=== PATIENT | female | born 1950 | race Caucasian/White ===

== ENCOUNTER 2022-04-20 11:26 | Inpatient (IN) | payer OTHER ==
[2022-04-20 11:41] VITALS: BMI 23.6
[2022-04-20 13:21] LABS: BASO % 1.1 % (0-2.0); EOS % 0.9 % (0-4.5); HEMATOCRIT 50.5 % (32.4-45.2); HEMOGLOBIN 16.8 GM/dL (10.7-15.3); LYMPH % 26.3 % (8-40); MCHC 33.3 g/dl (32.0-36.0); MEAN CELL VOLUME 90.2 fl (80-96); MEAN PLT VOLUME 9.2 fl (7.5-11.1); MONO % 5.3 % (3.8-10.2); NEUT % 66.4 % (42.8-82.8); PLATELET COUNT 270 10^3/uL (134-434); RDW 14.7 % (11.6-15.6); WHITE BLOOD COUNT 7.5 K/mm3 (4.0-10.0)
[2022-04-20] MEDS ORDERED: LACTATED RINGERS SOLUTION 1000 ML INFUS.BAG IV ONE (13:43)
[2022-04-20 13:51] LABS: CHLORIDE 108 mmol/L (98-107); SODIUM 140 mmol/L (136-145)
[2022-04-20 13:51] LABS: EPI CELLS 5 /uL (0-25.1); HYALINE CASTS 0 /uL (0-3.1); PH,URINE 6.5 (5.0-8.0); URINE APPEARANCE CLEAR; URINE BACTERIA 15 /uL (0-1359); URINE BILIRUBIN NEGATIVE (NEGATIVE); URINE COLOR YELLOW; URINE GLUCOSE (UA) NEGATIVE (NEGATIVE); URINE KETONE NEGATIVE (NEGATIVE); URINE LEUK ESTERASE TRACE (NEGATIVE); URINE NITRITE NEGATIVE (NEGATIVE); URINE PROTEIN NEGATIVE (NEGATIVE); URINE RBC 4 /uL (0-23.9); URINE UROBILINOGEN 0.2 mg/dL (0.2-1.0); URINE WBC 9 /uL (0-25.8)
[2022-04-20 13:53] LABS: CALCIUM 9.3 mg/dL (8.5-10.1)
[2022-04-20 13:54] LABS: ALBUMIN 3.5 g/dl (3.4-5.0); BLOOD UREA NITROGEN 23.4 mg/dL (7-18); CO2 26 mmol/L (21-32); GLUCOSE,RANDOM 85 mg/dL (74-106)
[2022-04-20 13:57] LABS: CREATININE 1.1 mg/dL (0.55-1.3); SGOT/AST 98 U/L (15-37)
[2022-04-20 13:58] LABS: BILIRUBIN,TOTAL 0.4 mg/dL (0.2-1)
[2022-04-20 13:59] LABS: TOT PROT 7.3 g/dl (6.4-8.2)
[2022-04-20 14:00] LABS: ALK PHOS 70 U/L (45-117)
[2022-04-20 14:02] LABS: ANION GAP 6 MMOL/L (8-16); N-TERMINAL BNP 5083.2 pg/ml (5-125); SGPT/ALT 37 U/L (13-61)
[2022-04-20 15:18] LABS: CALCIUM 8.8 mg/dL (8.5-10.1)
[2022-04-20 15:19] LABS: BLOOD UREA NITROGEN 21.8 mg/dL (7-18)
[2022-04-20 15:22] LABS: CREATININE 0.9 mg/dL (0.55-1.3)
[2022-04-20 15:23] LABS: TOT PROT 5.6 g/dl (6.4-8.2)
[2022-04-20 15:24] LABS: BILIRUBIN,TOTAL 0.4 mg/dL (0.2-1)
[2022-04-20] MEDS ORDERED: METOPROLOL TARTRATE 5 MG/5 ML VIAL IVPUSH ONE (19:30)
[2022-04-20] MEDS ORDERED: FUROSEMIDE 40 MG/4 ML INJECTABLE VIAL IVPUSH ONE (19:30)
[2022-04-20] MEDS ORDERED: METOPROLOL TARTRATE 5 MG/5 ML VIAL ONE (19:58)
[2022-04-20] MEDS ORDERED: FUROSEMIDE 40 MG/4 ML INJECTABLE VIAL ONE (19:58)
[2022-04-20] MEDS ORDERED: METOPROLOL TARTRATE 25 MG TABLET (FP) PO ONE (20:17)
[2022-04-20] MEDS ORDERED: APIXABAN 5 MG TABLET ONE (20:51)
[2022-04-20] MEDS ORDERED: METOPROLOL TARTRATE 25 MG TABLET (FP) ONE (20:51)
[2022-04-20] MEDS: APIXABAN 5 MG TABLET PO SCH (22:39)
[2022-04-21] MEDS ORDERED: METOPROLOL TARTRATE 25 MG TABLET (FP) PO ONE (00:26)
[2022-04-21] MEDS ORDERED: METOPROLOL TARTRATE 25 MG TABLET (FP) ONE ×3 (01:21→14:58)
[2022-04-21] MEDS: METOPROLOL TARTRATE 25 MG TABLET (FP) PO SCH ×3 (05:48→23:00)
[2022-04-21 07:13] LABS: BASO % 0.9 % (0-2.0); EOS % 1.3 % (0-4.5); HEMATOCRIT 49.8 % (32.4-45.2); HEMOGLOBIN 16.2 GM/dL (10.7-15.3); LYMPH % 30.5 % (8-40); MCH 29.4 pg (25.7-33.7); MCHC 32.5 g/dl (32.0-36.0); MEAN CELL VOLUME 90.5 fl (80-96); MEAN PLT VOLUME 9.2 fl (7.5-11.1); MONO % 6.8 % (3.8-10.2); NEUT % 60.5 % (42.8-82.8); PLATELET COUNT 262 10^3/uL (134-434); RDW 14.6 % (11.6-15.6); WHITE BLOOD COUNT 8.8 K/mm3 (4.0-10.0)
[2022-04-21 07:32] LABS: ALBUMIN 3.4 g/dl (3.4-5.0); BLOOD UREA NITROGEN 25.1 mg/dL (7-18); CALCIUM 9.3 mg/dL (8.5-10.1)
[2022-04-21 07:35] LABS: CREATININE 1.2 mg/dL (0.55-1.3)
[2022-04-21 07:37] LABS: BILIRUBIN,TOTAL 0.6 mg/dL (0.2-1); TOT PROT 6.3 g/dl (6.4-8.2)
[2022-04-21] MEDS ORDERED: APIXABAN 5 MG TABLET ONE (10:07)
[2022-04-21] MEDS: APIXABAN 5 MG TABLET PO SCH (11:49)
[2022-04-21] MEDS ORDERED: METOPROLOL TARTRATE 5 MG/5 ML VIAL ONE (12:53)
[2022-04-21] MEDS: METOPROLOL TARTRATE 5 MG/5 ML VIAL IVPUSH PRN (12:58)
[2022-04-21] MEDS ORDERED: HEPARIN NA (PORCINE) 5,000 UNITS/ML 1ML VIAL IVPUSH ONE (14:29)
[2022-04-21] MEDS ORDERED: HEPARIN NA (PORCINE) 5,000 UNITS/ML 1ML VIAL IVPUSH PRN (14:32)
[2022-04-21] MEDS ORDERED: HEPARIN NA (PORCINE) 5,000 UNITS/ML 1ML VIAL ONE (15:52)
[2022-04-21] MEDS: HEPARIN SOD,PORK IN 0.45% NACL 25,000 UNIT/500 ML INFUS.BAG IVPB SCH (16:12)
[2022-04-21 16:32] LABS: INR 1.59 (0.83-1.09); PROTHROMBIN TIME (PATIENT) 18.4 SEC (9.7-13.0)
[2022-04-21 16:35] LABS: ACTIVATED PTT 34.9 SECONDS (25.2-36.5)
[2022-04-22 07:32] LABS: HEMATOCRIT 48.6 % (32.4-45.2); MCH 29.7 pg (25.7-33.7); MCHC 32.8 g/dl (32.0-36.0); MEAN CELL VOLUME 90.7 fl (80-96); MEAN PLT VOLUME 9.3 fl (7.5-11.1); PLATELET COUNT 221 10^3/uL (134-434); RBC 5.36 M/mm3 (3.60-5.2); RDW 14.6 % (11.6-15.6); WHITE BLOOD COUNT 8.3 K/mm3 (4.0-10.0)
[2022-04-22 07:53] LABS: ALBUMIN 3.4 g/dl (3.4-5.0); CALCIUM 8.5 mg/dL (8.5-10.1)
[2022-04-22 07:54] LABS: BLOOD UREA NITROGEN 31.8 mg/dL (7-18)
[2022-04-22 07:56] LABS: CREATININE 1.1 mg/dL (0.55-1.3)
[2022-04-22 07:58] LABS: BILIRUBIN,TOTAL 0.6 mg/dL (0.2-1); TOT PROT 6.2 g/dl (6.4-8.2)
[2022-04-22] MEDS ORDERED: METOPROLOL TARTRATE 25 MG TABLET (FP) ONE ×4 (08:45→21:44)
[2022-04-22] MEDS: METOPROLOL TARTRATE 25 MG TABLET (FP) PO SCH ×3 (08:50→22:11)
[2022-04-22] MEDS ORDERED: METOPROLOL TARTRATE 5 MG/5 ML VIAL ONE (15:20)
[2022-04-22] MEDS: METOPROLOL TARTRATE 5 MG/5 ML VIAL IVPUSH PRN (15:25)
[2022-04-22] MEDS ORDERED: dilTIAZem HCL 50 MG/10 ML - 10 ML VIAL IVPUSH ONE (15:36)
[2022-04-22] MEDS: HEPARIN SOD,PORK IN 0.45% NACL 25,000 UNIT/500 ML INFUS.BAG IVPB SCH (15:37)
[2022-04-22] MEDS ORDERED: LORazepam 0.5 MG TABLET PO PRN (15:45)
[2022-04-22] MEDS ORDERED: LORazepam 0.5 MG TABLET ONE (15:55)
[2022-04-22] MEDS ORDERED: METOPROLOL TARTRATE 25 MG TABLET (FP) PO ONE (15:55)
[2022-04-23] MEDS: METOPROLOL TARTRATE 25 MG TABLET (FP) PO SCH ×3 (06:31→21:21)
[2022-04-23 08:18] LABS: HEMATOCRIT 45.3 % (32.4-45.2); HEMOGLOBIN 15.2 GM/dL (10.7-15.3); MCH 30.8 pg (25.7-33.7); MCHC 33.6 g/dl (32.0-36.0); MEAN CELL VOLUME 91.5 fl (80-96); MEAN PLT VOLUME 8.9 fl (7.5-11.1); PLATELET COUNT 147 10^3/uL (134-434); RBC 4.95 M/mm3 (3.60-5.2); RDW 14.4 % (11.6-15.6); WHITE BLOOD COUNT 6.6 K/mm3 (4.0-10.0)
[2022-04-23] MEDS: HEPARIN NA (PORCINE) 5,000 UNITS/ML 1ML VIAL IVPUSH PRN (08:58)
[2022-04-23] MEDS: HEPARIN SOD,PORK IN 0.45% NACL 25,000 UNIT/500 ML INFUS.BAG IVPB SCH ×2 (17:50→18:56)
[2022-04-24] MEDS: HEPARIN NA (PORCINE) 5,000 UNITS/ML 1ML VIAL IVPUSH PRN ×2 (04:42→23:49)
[2022-04-24] MEDS: METOPROLOL TARTRATE 25 MG TABLET (FP) PO SCH ×3 (06:37→21:55)
[2022-04-24 09:16] LABS: HEMATOCRIT 46.4 % (32.4-45.2); HEMOGLOBIN 15.1 GM/dL (10.7-15.3); MCH 29.9 pg (25.7-33.7); MCHC 32.6 g/dl (32.0-36.0); MEAN CELL VOLUME 91.8 fl (80-96); MEAN PLT VOLUME 9.2 fl (7.5-11.1); PLATELET COUNT 191 10^3/uL (134-434); RBC 5.06 M/mm3 (3.60-5.2); RDW 14.7 % (11.6-15.6)
[2022-04-24] MEDS: HEPARIN SOD,PORK IN 0.45% NACL 25,000 UNIT/500 ML INFUS.BAG IVPB SCH (13:30)
[2022-04-25] MEDS: METOPROLOL TARTRATE 25 MG TABLET (FP) PO SCH ×3 (06:03→21:24)
[2022-04-25 08:47] LABS: HEMATOCRIT 44.9 % (32.4-45.2); HEMOGLOBIN 15.1 GM/dL (10.7-15.3); MCH 30.5 pg (25.7-33.7); MCHC 33.6 g/dl (32.0-36.0); MEAN CELL VOLUME 90.8 fl (80-96); MEAN PLT VOLUME 8.9 fl (7.5-11.1); PLATELET COUNT 180 10^3/uL (134-434); RBC 4.95 M/mm3 (3.60-5.2); RDW 14.4 % (11.6-15.6)
[2022-04-25] MEDS: HEPARIN SOD,PORK IN 0.45% NACL 25,000 UNIT/500 ML INFUS.BAG IVPB SCH (18:54)
[2022-04-26] MEDS: HEPARIN NA (PORCINE) 5,000 UNITS/ML 1ML VIAL IVPUSH PRN (01:21)
[2022-04-26] MEDS: HEPARIN SOD,PORK IN 0.45% NACL 25,000 UNIT/500 ML INFUS.BAG IVPB SCH (02:02)
[2022-04-26] MEDS: METOPROLOL TARTRATE 25 MG TABLET (FP) PO SCH (05:46)
[2022-04-26 08:14] LABS: HEMATOCRIT 47.8 % (32.4-45.2); HEMOGLOBIN 15.6 GM/dL (10.7-15.3); MCH 29.8 pg (25.7-33.7); MCHC 32.7 g/dl (32.0-36.0); MEAN CELL VOLUME 91.2 fl (80-96); MEAN PLT VOLUME 9.7 fl (7.5-11.1); PLATELET COUNT 164 10^3/uL (134-434); RBC 5.24 M/mm3 (3.60-5.2); RDW 14.7 % (11.6-15.6); WHITE BLOOD COUNT 6.5 K/mm3 (4.0-10.0)
[2022-04-26] MEDS ORDERED: ATORVASTATIN CA 20 MG TABLET (FP) PO ONE (09:36)
[2022-04-26 09:41] VITALS: BP 121/89; PULSE 80; RESP 17; TEMP 98
[2022-04-27] MEDS ORDERED: ATORVASTATIN CA 20 MG TABLET (FP) PO SCH (10:00)
== END 2022-04-26 12:33 | disposition short-term general hospital (02) | DRG 207 ==
LOC: JER 11:26 → JERBED 19:22 → J4W 04-23 01:57
PROVIDERS: ADMIT Internal Medicine; ATTEND Family Medicine
DX: I27.20 Pulmonary hypertension, unspecified (principal); I11.0 Hypertensive heart disease with heart failure; I50.33 Acute on chronic diastolic (congestive) heart failure; R00.0 Tachycardia, unspecified; I48.92 Unspecified atrial flutter; R06.02 Shortness of breath
CPT/HCPCS: 36415; 71045-TC-FY; 71275-TC; 80048; 80053; 80061; 81003; 83880; 84439; 84443; 84484; 85025; 85027; 85610; 85730; 87086; 87186; 93005; 93010; 93306-TC; 99285-25; C9803-CS; J1644; Q9967; U0003; U0005

== ENCOUNTER 2023-06-02 16:59 | Inpatient (IN) | payer OTHER ==
[2023-06-02 20:26] LABS: BASO % 1.1 % (0-2.0); EOS % 1.5 % (0-4.5); HEMOGLOBIN 12.1 GM/dL (10.7-15.3); LYMPH % 25.1 % (8-40); MCHC 32.6 g/dl (32.0-36.0); MEAN CELL VOLUME 88.9 fl (80-96); MEAN PLT VOLUME 7.6 fl (7.5-11.1); MONO % 8.3 % (3.8-10.2); PLATELET COUNT 176 10^3/uL (134-434); RBC 4.16 M/mm3 (3.60-5.2); RDW 15.4 % (11.6-15.6); WHITE BLOOD COUNT 5.6 K/mm3 (4.0-10.0)
[2023-06-02 20:35] LABS: INR 1.38 (0.83-1.09); PROTHROMBIN TIME (PATIENT) 15.9 SEC (9.7-13.0)
[2023-06-02 20:38] LABS: ACTIVATED PTT 35.8 SECONDS (25.2-36.5)
[2023-06-02 20:48] LABS: POTASSIUM 4.6 mmol/L (3.5-5.1)
[2023-06-02 20:50] LABS: ALBUMIN 3.7 g/dl (3.4-5.0); BLOOD UREA NITROGEN 29.1 mg/dL (7-18); CALCIUM 8.6 mg/dL (8.5-10.1)
[2023-06-02 20:53] LABS: CREATININE 1.1 mg/dL (0.55-1.3)
[2023-06-02 20:55] LABS: BILIRUBIN,TOTAL 0.3 mg/dL (0.2-1); TOT PROT 6.4 g/dl (6.4-8.2)
[2023-06-03] MEDS: HYDROCORTISONE ACETATE 25 MG/SUPP.RECT RC SCH ×2 (01:09→15:13)
[2023-06-03 04:51] VITALS: BMI 24.7
[2023-06-03 07:19] LABS: HEMATOCRIT 34.6 % (32.4-45.2); MCHC 31.9 g/dl (32.0-36.0); MEAN CELL VOLUME 90.9 fl (80-96); PLATELET COUNT 166 10^3/uL (134-434); RDW 15.5 % (11.6-15.6); WHITE BLOOD COUNT 4.5 K/mm3 (4.0-10.0)
[2023-06-03 07:46] LABS: POTASSIUM 4.5 mmol/L (3.5-5.1)
[2023-06-03 07:52] LABS: ALBUMIN 3.1 g/dl (3.4-5.0)
[2023-06-03 07:53] LABS: BLOOD UREA NITROGEN 30.8 mg/dL (7-18); MAGNESIUM 2.2 mg/dL (1.8-2.4)
[2023-06-03 07:54] LABS: PHOSPHOROUS 3.2 mg/dL (2.5-4.9)
[2023-06-03 07:55] LABS: BILIRUBIN,TOTAL 0.3 mg/dL (0.2-1); TOT PROT 5.6 g/dl (6.4-8.2)
[2023-06-03] MEDS ORDERED: PANTOPRAZOLE SODIUM 40 MG VIAL IVPUSH SCH (12:30)
[2023-06-03] MEDS: PATIENT'S OWN MEDICATION (NON-FORMULARY) (Tadalafil [Tadalafil] 20 MG Tablet) PO SCH (21:51)
[2023-06-04 06:38] LABS: BASO % 0.7 % (0-2.0); EOS % 2.9 % (0-4.5); HEMATOCRIT 35.2 % (32.4-45.2); HEMOGLOBIN 11.3 GM/dL (10.7-15.3); LYMPH % 21.7 % (8-40); MCH 28.8 pg (25.7-33.7); MCHC 31.9 g/dl (32.0-36.0); MEAN CELL VOLUME 90.1 fl (80-96); MONO % 8.6 % (3.8-10.2); NEUT % 66.1 % (42.8-82.8); PLATELET COUNT 172 10^3/uL (134-434); RBC 3.91 M/mm3 (3.60-5.2); RDW 15.4 % (11.6-15.6)
[2023-06-04 06:59] LABS: POTASSIUM 4.3 mmol/L (3.5-5.1)
[2023-06-04 07:06] LABS: CALCIUM 8.1 mg/dL (8.5-10.1)
[2023-06-04 07:07] LABS: MAGNESIUM 2.1 mg/dL (1.8-2.4)
[2023-06-04 07:09] LABS: CREATININE 0.8 mg/dL (0.55-1.3)
[2023-06-04 07:10] LABS: PHOSPHOROUS 3.6 mg/dL (2.5-4.9)
[2023-06-04 07:11] LABS: BILIRUBIN,TOTAL 0.4 mg/dL (0.2-1); TOT PROT 5.5 g/dl (6.4-8.2)
[2023-06-04] MEDS: PATIENT'S OWN MEDICATION (NON-FORMULARY) (Tadalafil [Tadalafil] 20 MG Tablet) PO SCH (09:45)
[2023-06-04] MEDS ORDERED: PANTOPRAZOLE 40 MG TABLET PO SCH (10:00)
[2023-06-04] MEDS ORDERED: POLYETHYLENE GLYCOL (HEALTHYLAX) 3350 17 GM PACKET PO SCH (10:00)
[2023-06-04] MEDS ORDERED: MACITENTAN 10 MG PO SCH (10:00)
[2023-06-04 10:55] VITALS: TEMP 98
[2023-06-04] MEDS ORDERED: FUROSEMIDE 40 MG TABLET (FP) PO ONE (15:00)
[2023-06-04 16:35] VITALS: BP 111/53; PULSE 80; RESP 23
[2023-06-04] MEDS ORDERED: APIXABAN 5 MG TABLET PO SCH (22:00)
== END 2023-06-04 17:47 | disposition home or self-care (01) | DRG 661 ==
LOC: JER 16:59 → JERBED 23:59 → OBSVTOIN 23:59 → J2W 06-03 04:33
PROVIDERS: ADMIT Internal Medicine; ATTEND Internal Medicine
DX: D68.32 Hemorrhagic disorder due to extrinsic circulating anticoagulants (principal); I11.0 Hypertensive heart disease with heart failure; I27.21 Secondary pulmonary arterial hypertension; I50.32 Chronic diastolic (congestive) heart failure; Q21.10 Atrial septal defect, unspecified; K62.5 Hemorrhage of anus and rectum; K64.9 Unspecified hemorrhoids
CPT/HCPCS: 0241U-QW; 36415; 71045-TC-FY; 74174-TC; 80053; 82272; 83735; 84100; 85025; 85027; 85610; 85730; 86850; 86900; 86901; 93005; 93010; 99285-25